=== PATIENT | female | born 1935 | race Caucasian/White ===

== ENCOUNTER 2017-04-01 15:05 | Inpatient (IN) | payer MEDICARE ==
[2017-04-01] MEDS ORDERED: Prevnar 13-Val Conj/PF 0.5 ML SYRINGE IM ONE (17:15)
[2017-04-01] MEDS ORDERED: FLU VACC TS2017-18 (>65YR) 0.5 ML SYRINGE IM ONE (17:15)
[2017-04-01] MEDS ORDERED: Guaifenesin DM 100-10/5 ML UDCUP ONE (18:03)
[2017-04-01] MEDS ORDERED: Ondansetron ODT 4 MG TAB PO PRN (18:09)
[2017-04-01] MEDS ORDERED: Guaifenesin DM 100-10/5 ML UDCUP PO SCH (18:15)
[2017-04-01] MEDS ORDERED: methylPREDNISolone 4 mg Tablet PO SCH (18:30)
[2017-04-01] MEDS: Acetaminophen 325 MG TAB PO PRN (18:36)
[2017-04-01] MEDS ORDERED: Oseltamivir 6 MG/ML ORAL SUSP ONE (20:43)
[2017-04-01] MEDS: Gabapentin 300 MG CAP PO SCH (20:56)
[2017-04-01] MEDS: Pravastatin Sodium 20 MG TAB PO SCH (20:56)
[2017-04-01] MEDS: Donepezil HCl 10 MG TAB PO SCH (20:57)
[2017-04-01] MEDS: Amitriptyline HCl 25 MG TAB PO SCH (20:57)
[2017-04-01] MEDS ORDERED: Amitriptyline HCl 25 MG TAB PO SCH (21:00)
[2017-04-01] MEDS ORDERED: Oseltamivir 6 MG/ML ORAL SUSP PO SCH (21:00)
--- NOTE | 2017-04-01 23:22 | HP ---
DATE OF ADMISSION: 04/01/2017 ADMITTING PHYSICIAN: Dr. Rich aM. PRIMARY CARE PHYSICIAN: Out of town. REASON FOR ADMISSION: For skilled rehabilitation at [facility] bed status post influenza A, right lower lobe pneumonia, and non-ST elevation UT. HISTORY OF PRESENT ILLNESS: Ms. Gooden is an 81-year-old female with a past medical histo ry of dementia, hypertension, hyperlipidemia, depression who was brought to the emergency room by [facility] members due to generalized weakness, altered mental status, and dizziness. In the emergency room , patient was noted to be positive for influenza A noted to dehydrated and she had elevated troponins . Patient was admitted to [facility], where she was treated with IV Rocephin and Levaquin. She was started on Tamiflu twice a day for influenza A and she was evaluated by cardiolog ist. During hospitalization, patient's mental status progressively improved, but she was noted to be very weak. Son states normally she leaves by herself is in bed and sedated so for most of the day, but does not ambulate much, but at this time she is very very weak and can barely stand up on own. P atient was treated with IV fluids and acute kidney injury progressively improved. The decision was m jessenia to transfer patient to [facility] to continue physical therapy prior to dis charge to home. Upon evaluation of patient today, her son and [id number] were in the room with her. The patient denied any pain, but complains of cough and complains of generalized weakness. She denies any fever , nausea, vomiting, abdominal pain, or chest pain. Patient complains of some headache. PAST MEDICAL HISTORY: Hypertension, hyperlipidemia, depression, fibromyalgia. PAST SURGICAL HISTORY: Ovarian cancer status post surgery in 2002, cholecystectomy, left-wrist fract ure repair. FAMILY HISTORY: CVA and UT in mother, bone cancer in father. ALLERGIES: CODEINE. SOCIAL HISTORY: No alcohol or tobacco use. Patient currently lives in [place] by herself on the [facility] property as her son and [id number]. HOME MEDICATION: Gabapentin 300 at bedtime, amitriptyline 25 mg 2 tablets at bedtime, pravastatin 40 mg at bedtime, lisinopril 2.5 mg daily, donepezil 10 mg at bedtime, sertraline 100 two tabs daily, b upropion 150 one tab q.a.m., Tamiflu 30 mg q.p.m., last dose to be given today, Medrol Pablo 4 mg once a day, DuoNeb q.6 p.r.n., Plavix 75 daily, aspirin 81 mg daily, Levaquin 500 mg daily. REVIEW OF SYSTEMS: General: Patient denies any fever, complains of weakness. HEENT: No vision maria r nges. No hearing, no dysphagia. Chest: No chest pain. Complaints of cough, respiration. Complain ts of shortness of breath and wheezing. Abdomen: Denies abdominal pain, constipation, or nausea. G enitourinary: Denies dysuria or hematuria. Skin: Denies easy bruising. Musculoskeletal: Complain ts of generalized weakness and bone soreness. Neurologic: Denies any memory loss, hallucination or delusions. Family states she has dementia. PHYSICAL EXAMINATION: VITAL SIGNS: Temperature 98.1, pulse 82, respirations 16, O2 sat 100% on 2 liters, blood pressure 13 2/61. GENERAL APPEARANCE: Alert, awake, oriented x3, lying comfortably in bed in no apparent distress. HEENT: Atraumatic, normocephalic. EOM intact. PERRLA. Oral mucous membranes moist. No pharyngeal exudates. NECK: Supple, no thyromegaly. CARDIOVASCULAR: S1, S2. No murmurs, no JVD. LUNGS: Clear to auscultation bilaterally. No wheezing, no crackles. ABDOMEN: Positive bowel sounds. Soft, nontender, no guarding, no rigidity. EXTREMITIES: No edema or cyanosis. SKIN: No rashes or bruising. NEUROLOGICAL: Alert, awake, oriented x3. Cranial nerves II-XII grossly intact. No focal motor or s ensory deficits. ASSESSMENT: 1. Physical deconditioning. 2. Influenza type A. 3. Right-sided pneumonia. 4. Gait instability. 5. Acute kidney injury. 6. Hypertension. 7. Depression. 8. Fibromyalgia. PLAN: The patient is being admitted to [facility] swing bed for rehabilitation and g ait strengthening. We will consult physical therapy for strengthening in order to gain modified inde pendence with gait and occupational therapy to help with activities of daily living prior to returnin lalo to her home. We will resume all patient's home medications. We will continue Levaquin, Medrol, an d Tamiflu protocol. We will place patient on DuoNeb scheduled and cough medicines p.r.n. We will mo nitor patient closely for any medical comorbidities that may interfere with recovery. We will place patient on Lovenox for DVT prophylaxis and Protonix for GI prophylaxis. EXTENDED LENGTH OF STAY: 3-4 weeks. DISPOSITION: Home. CODE STATUS: FULL CODE.
[2017-04-02] MEDS: Aspirin 81 mg Enteric Coated Tablet PO SCH (08:46)
[2017-04-02] MEDS: Clopidogrel Bisulfate 75 MG TAB PO SCH (08:46)
[2017-04-02] MEDS: Bupropion 150 MG SR TAB PO SCH (08:46)
[2017-04-02] MEDS: Enoxaparin Sodium 30 MG/0.3 ML SYRINGE SC SCH (08:46)
[2017-04-02] MEDS: Potassium Chloride 20 MEQ TAB PO SCH (08:47)
[2017-04-02] MEDS: methylPREDNISolone 4 mg Tablet PO SCH ×3 (11:25→22:27)
[2017-04-02] MEDS: Guaifenesin DM 100-10/5 ML UDCUP PO PRN ×2 (13:13→22:39)
[2017-04-02] MEDS: Acetaminophen 325 MG TAB PO PRN (15:18)
[2017-04-02] MEDS: Pravastatin Sodium 20 MG TAB PO SCH (22:26)
[2017-04-02] MEDS: Donepezil HCl 10 MG TAB PO SCH (22:26)
[2017-04-02] MEDS: Amitriptyline HCl 25 MG TAB PO SCH (22:27)
[2017-04-02] MEDS: Gabapentin 300 MG CAP PO SCH (22:27)
[2017-04-03] MEDS: methylPREDNISolone 4 mg Tablet PO SCH ×3 (09:39→17:49)
[2017-04-03] MEDS: Clopidogrel Bisulfate 75 MG TAB PO SCH (09:40)
[2017-04-03] MEDS: Bupropion 150 MG SR TAB PO SCH (09:40)
[2017-04-03] MEDS: Enoxaparin Sodium 30 MG/0.3 ML SYRINGE SC SCH (09:40)
[2017-04-03] MEDS: Aspirin 81 mg Enteric Coated Tablet PO SCH (09:40)
[2017-04-03] MEDS: Potassium Chloride 20 MEQ TAB PO SCH (09:41)
[2017-04-03] MEDS: Guaifenesin DM 100-10/5 ML UDCUP PO PRN (11:48)
[2017-04-03] MEDS: Amitriptyline HCl 25 MG TAB PO SCH (20:16)
[2017-04-03] MEDS: Pravastatin Sodium 20 MG TAB PO SCH (20:16)
[2017-04-03] MEDS: Donepezil HCl 10 MG TAB PO SCH (20:16)
[2017-04-03] MEDS: Gabapentin 300 MG CAP PO SCH (20:17)
[2017-04-03] MEDS ORDERED: methylPREDNISolone 4 mg Tablet PO SCH (21:00)
[2017-04-04] MEDS: Bupropion 150 MG SR TAB PO SCH (08:21)
[2017-04-04] MEDS: Aspirin 81 mg Enteric Coated Tablet PO SCH (08:21)
[2017-04-04] MEDS: methylPREDNISolone 4 mg Tablet PO SCH ×4 (08:21→21:12)
[2017-04-04] MEDS: Clopidogrel Bisulfate 75 MG TAB PO SCH (08:22)
[2017-04-04] MEDS: Enoxaparin Sodium 30 MG/0.3 ML SYRINGE SC SCH (08:22)
[2017-04-04] MEDS: Potassium Chloride 20 MEQ TAB PO SCH (08:23)
[2017-04-04] MEDS: Guaifenesin DM 100-10/5 ML UDCUP PO PRN (17:10)
[2017-04-04] MEDS: Pravastatin Sodium 20 MG TAB PO SCH (21:10)
[2017-04-04] MEDS: Donepezil HCl 10 MG TAB PO SCH (21:12)
[2017-04-04] MEDS: Gabapentin 300 MG CAP PO SCH (21:13)
[2017-04-04] MEDS: Amitriptyline HCl 25 MG TAB PO SCH (21:13)
[2017-04-05] MEDS: methylPREDNISolone 4 mg Tablet PO SCH ×3 (08:39→17:03)
[2017-04-05] MEDS: Clopidogrel Bisulfate 75 MG TAB PO SCH (08:39)
[2017-04-05] MEDS: Aspirin 81 mg Enteric Coated Tablet PO SCH (08:39)
[2017-04-05] MEDS: Potassium Chloride 20 MEQ TAB PO SCH (08:39)
[2017-04-05] MEDS: Bupropion 150 MG SR TAB PO SCH (08:39)
[2017-04-05 14:36] VITALS: BMI 25.1
[2017-04-05] MEDS: Donepezil HCl 10 MG TAB PO SCH (20:35)
[2017-04-05] MEDS: Amitriptyline HCl 25 MG TAB PO SCH (20:35)
[2017-04-05] MEDS: Pravastatin Sodium 20 MG TAB PO SCH (20:35)
[2017-04-05] MEDS: Gabapentin 300 MG CAP PO SCH (20:36)
[2017-04-06] MEDS: Clopidogrel Bisulfate 75 MG TAB PO SCH (08:36)
[2017-04-06] MEDS: Bupropion 150 MG SR TAB PO SCH (08:36)
[2017-04-06] MEDS: Potassium Chloride 20 MEQ TAB PO SCH (08:36)
[2017-04-06] MEDS: methylPREDNISolone 4 mg Tablet PO SCH ×2 (08:36→17:00)
[2017-04-06] MEDS: Aspirin 81 mg Enteric Coated Tablet PO SCH (08:36)
[2017-04-06] MEDS: Donepezil HCl 10 MG TAB PO SCH (20:56)
[2017-04-06] MEDS: Amitriptyline HCl 25 MG TAB PO SCH (20:56)
[2017-04-06] MEDS: Gabapentin 300 MG CAP PO SCH (20:57)
[2017-04-06] MEDS: Pravastatin Sodium 20 MG TAB PO SCH (20:57)
[2017-04-07] MEDS ORDERED: methylPREDNISolone 4 mg Tablet PO SCH (08:00)
[2017-04-07] MEDS: Aspirin 81 mg Enteric Coated Tablet PO SCH (08:12)
[2017-04-07] MEDS: Bupropion 150 MG SR TAB PO SCH (08:12)
[2017-04-07] MEDS: Potassium Chloride 20 MEQ TAB PO SCH (08:12)
[2017-04-07] MEDS: Clopidogrel Bisulfate 75 MG TAB PO SCH (08:12)
[2017-04-07] MEDS: Gabapentin 300 MG CAP PO SCH (20:05)
[2017-04-07] MEDS: Donepezil HCl 10 MG TAB PO SCH (20:05)
[2017-04-07] MEDS: Pravastatin Sodium 20 MG TAB PO SCH (20:05)
[2017-04-07] MEDS: Amitriptyline HCl 25 MG TAB PO SCH (20:06)
[2017-04-08 08:28] VITALS: BP 133/62; TEMP 97.7
[2017-04-08] MEDS: Bupropion 150 MG SR TAB PO SCH (08:41)
[2017-04-08] MEDS: Clopidogrel Bisulfate 75 MG TAB PO SCH (08:42)
[2017-04-08] MEDS: Aspirin 81 mg Enteric Coated Tablet PO SCH (08:42)
[2017-04-08] MEDS: Potassium Chloride 20 MEQ TAB PO SCH (08:42)
--- NOTE | 2017-04-09 07:59 | DIS ---
DATE OF ADMISSION: 04/01/2017 DATE OF DISCHARGE: 04/08/2017 ADMITTING PHYSICIAN: Rich Ma MD DISCHARGING PHYSICIAN: Rich Ma MD DISCHARGE DIAGNOSES: 1. Physical debility, improving. 2. Influenza type A, resolved. 3. Right-sided pneumonia, resolved. 4. Acute kidney injury, resolved. 5. Hypertension. 6. Depression. 7. Fibromyalgia. DISCHARGE MEDICATIONS: Gabapentin 300 at bedtime, amitriptyline 25 two tablets at bedtime, pravastatin 40 daily, lisinopril 2.5 daily, donepezil 10 at bedtime , sertraline 200 daily, bupropion 150 q.a.m., Plavix 75 daily, aspirin 81 daily. FOLLOWUP INSTRUCTIONS: The patient is to follow up with her PCP within 1 week. The patient is to use rolling walker for all ambulation. [facility] is to start physical therapy, occupational therapy, and nursing care. CODE STATUS: FULL CODE. BRIEF HOSPITAL COURSE: Ms. Gooden is an 81-year-old female with a past medical history of dementia, hypertension, hyperlipidemia, fibromyalgia, and depression. The patient was admitted to [facility] due to influenza type A. She was also noted to have a superimposed right lower lobe pneumonia and the influenza caused demand ischemia to her heart and the patient also sustained a non-ST elevation MA. The patient due to this became very deconditioned. She was treated in [facility] with IV Rocephin and Levaquin and Tamiflu was started. The patient does live by herself and due to deconditioning, the decision was made to transfer to a skilled rehabilitation prior to discharge to her home. The patient was able to participate in physical therapy and tolerated physical therapy well. She completed Tamiflu and completed Levaquin. The patient continued and slowly progress with physical therapy. On day of discharge, she was able to walk 350 feet with a rolling walker. The patient was subsequently discharged home with her son and [id number] in a stable condition. The decision was made to start [facility] for physical therapy, occupational therapy, and nursing care to help strengthen her some more. The patient was discharged home in a stable condition. Vital signs on day of discharge: Temperature 97.7, pulse 84, oxygen saturation 96% on room air, respiratory rate 18, and blood pressure 133/62. MTDD
== END 2017-04-08 15:52 | disposition home health service (06) | DRG 193 ==
LOC: MADMS 15:05
PROVIDERS: ADMIT Family Medicine; ATTEND Family Medicine
DX: J10.00 Influenza due to other identified influenza virus with unspecified type of pneumonia (principal); I21.A1 Myocardial infarction type 2; N17.9 Acute kidney failure, unspecified; I10 Essential (primary) hypertension; F32.9 Major depressive disorder, single episode, unspecified; M79.7 Fibromyalgia; F03.90 Unspecified dementia, unspecified severity, without behavioral disturbance, psychotic disturbance, mood disturbance, and anxiety; E78.5 Hyperlipidemia, unspecified; R26.9 Unspecified abnormalities of gait and mobility
CPT/HCPCS: G8978-GP-CK; G8979-GP-CI; J1650

== ENCOUNTER 2017-05-18 12:56 | Outpatient (CLI) | payer MEDICARE ==
[2017-05-18 13:31] LABS: Bilirubin Negative (Negative); Blood, Urine Negative (Negative); Clarity Clear (Clear); Glucose, Urine (Dipstick) Negative (Negative); Leukocyte Negative (Negative); Nitrite Negative (Negative); Protein, Urine (Dipstick) Negative (Neg-Trace); Specific Gravity, Urine 1.015 (1.005-1.030); Urobilinogen 0.2 mg/dL (0.2-1.0); pH, Urine 5.5 (5.0-9.0)
[2017-05-18 13:44] LABS: Bacteria/HPF Rare-Few HPF (None Seen); RBC/HPF 0-3 HPF (0-3); Squamous Epithelial 0-3 HPF (0-3); WBC/HPF 0-3 HPF (0-3)
== END 2017-05-18 12:57 | disposition home or self-care (01) ==
LOC: MADLABBHPM 12:56
PROVIDERS: ATTEND Family Medicine
DX: N39.0 Urinary tract infection, site not specified (principal)
CPT/HCPCS: 36415; 81001; 87086

== ENCOUNTER 2018-06-19 10:36 | Emergency (ER) | payer MEDICARE ==
--- NOTE | 2018-06-19 11:41 | CT ---
CT BRAIN WITHOUT CONTRAST: HISTORY: Headache, dizziness with syncope. FINDINGS: Comparison is made with the exam of 08/30/2008. No evidence of infarct, hemorrhage, midline shift, or abnormal extraaxial fluid collections seen. Th e ventricular size is appropriate and the basilar cisterns are patent. The bony calvarium is intact. The visualized paranasal sinuses and mastoid air cells are well aerated. IMPRESSION: No CT evidence of acute cardiopulmonary process. POS: TPC
[2018-06-19 11:52] LABS: Hemoglobin 11.8 g/dL (12.0-16.0); Mean Corpuscular HGB CONC 31.7 g/dL (32.0-36.0); Mean Corpuscular Hemoglobin 28.9 pg (27.0-31.0); Platelet Count 260 thou/uL (130-400); RBC Distribution Width 13.9 % (11.5-14.5); Red Blood Cell (RBC) Count 4.07 mill/uL (4.20-5.40); White Blood Cell (WBC) Count 13.8 thou/uL (4.8-10.8)
[2018-06-19 12:02] LABS: Anisocytosis SLIGHT = 6-15 cells (100X) (0-5/hpf); Band 1 % (5-11); Lymphocytes 30 % (21-51); MDiff Complete? YES; Monocytes 2 % (0-10); Neutrophil 67 % (42-75); Platelet Morphology Comment Appears Adequate
[2018-06-19] MEDS ORDERED: Aspirin Chewable 81 MG TAB ONE (12:12)
[2018-06-19 12:38] LABS: ALT (SGPT) 26 U/L (8-55); AST (SGOT) 21 U/L (5-34); Alkaline Phosphatase 89 U/L (40-150); Anion Gap 17 mmol/L (10-20); BUN (Urea Nitrogen) 35 mg/dL (9.8-20.1); Bilirubin, Total 0.3 mg/dL (0.2-1.2); Calc. Creatinine Clearance 0 mL/min (70-130); Calcium 8.9 mg/dL (7.8-10.44); Carbon Dioxide 25 mmol/L (23-31); Chloride 102 mmol/L (98-107); Estimated GFR-MDRD 38; Globulin 2.9 g/dL (2.4-3.5); Glucose 94 mg/dL (83-110); Potassium 4.1 mmol/L (3.5-5.1); Protein, Total 6.9 g/dL (6.0-8.3); Sodium 140 mmol/L (136-145)
== END 2018-06-19 12:35 | disposition short-term general hospital (02) ==
LOC: MADERS 10:36
DX: R55 Syncope and collapse (principal); I24.9 Acute ischemic heart disease, unspecified; E78.5 Hyperlipidemia, unspecified; I10 Essential (primary) hypertension; F03.90 Unspecified dementia, unspecified severity, without behavioral disturbance, psychotic disturbance, mood disturbance, and anxiety; Z79.899 Other long term (current) drug therapy; Z79.82 Long term (current) use of aspirin
CPT/HCPCS: 70450; 80053; 83735; 83880; 84443; 84484; 85025; 93005

== ENCOUNTER 2020-03-26 10:08 | Emergency (ER) | payer MEDICAID, MEDICARE ==
[2020-03-26] MEDS ORDERED: cefTRIAXone\\ROCEPHIN 1 GM VIAL ONE (11:00)
[2020-03-26] MEDS ORDERED: Dexamethasone 10 MG/ML VIAL ONE (11:00)
[2020-03-26] MEDS ORDERED: Sodium Chloride 0.9% 100 ML ONE ×2 (11:01→12:17)
--- NOTE | 2020-03-26 11:11 | RAD ---
EXAM: XR Chest 1 View Portable PROVIDED CLINICAL HISTORY: Dyspnea, Covid positive COMPARISON: 03/22/2020 FINDINGS: Cardiac and mediastinal silhouette is unchanged in appearance. Interval worsening of bilateral inters titial and airspace disease. There is obscuration of the left hemidiaphragm that may reflect left basilar pleural and/or parenchymal opacity. There is no evidence for pneumothorax. IMPRESSION: Worsened bilateral airspace disease compatible with Covid pneumonia.
[2020-03-26 11:55] LABS: Hemoglobin 13.4 g/dL (12.0-16.0); Mean Corpuscular Hemoglobin 29.7 pg (27.0-31.0); Mean Corpuscular Volume 93.1 fL (78.0-98.0); RBC Distribution Width 12.7 % (11.5-14.5); White Blood Cell (WBC) Count 20.4 thou/uL (4.8-10.8)
[2020-03-26 11:56] LABS: MDiff Complete? YES; Manual Diff?? YES; Mean Platelet Volume 6.8 fL (7.4-10.4); Platelet Count 413 thou/uL (130-400)
[2020-03-26 11:57] LABS: Anisocytosis SLIGHT = 6-15 cells (100X) (0-5/hpf); Band 3 % (5-11); Lymphocytes 11 % (21-51); Monocytes 1 % (0-10); Neutrophil 85 % (42-75); Platelet Morphology Comment Appears Adequate
[2020-03-26 12:00] LABS: ALT (SGPT) 30 U/L (8-55); AST (SGOT) 24 U/L (5-34); Albumin 3.2 g/dL (3.4-4.8); Alkaline Phosphatase 78 U/L (40-110); Anion Gap 18 mmol/L (10-20); BUN (Urea Nitrogen) 36 mg/dL (9.8-20.1); Bilirubin, Total 0.5 mg/dL (0.2-1.2); Calc. Creatinine Clearance 0 mL/min (70-130); Calcium 8.9 mg/dL (7.8-10.44); Carbon Dioxide 19 mmol/L (23-31); Chloride 108 mmol/L (98-107); Globulin 3.9 g/dL (2.4-3.5); Glucose 117 mg/dL (83-110); Potassium 5.2 mmol/L (3.5-5.1); Protein, Total 7.1 g/dL (6.0-8.3); Sodium 140 mmol/L (136-145)
[2020-03-26 12:03] LABS: CRP (Inflammatory) 26.44 mg/dL (= or < 0.5)
[2020-03-26] MEDS ORDERED: Sodium Chloride 0.9% 1,000 ML ONE (12:17)
[2020-03-26] MEDS ORDERED: Doxycycline Hyclate 100 MG VIAL ONE (12:17)
[2020-03-26 12:25] LABS: CKMB 1.6 ng/mL (0-6.6)
== END 2020-03-26 12:35 | disposition short-term general hospital (02) ==
LOC: MADERS 10:08
DX: U07.1 COVID-19 (principal); J96.91 Respiratory failure, unspecified with hypoxia; E78.5 Hyperlipidemia, unspecified; E78.00 Pure hypercholesterolemia, unspecified; I10 Essential (primary) hypertension; I25.10 Atherosclerotic heart disease of native coronary artery without angina pectoris; I25.2 Old myocardial infarction; Z86.73 Personal history of transient ischemic attack (TIA), and cerebral infarction without residual deficits; Z79.899 Other long term (current) drug therapy
CPT/HCPCS: 36415; 71045; 80053; 82550; 82553; 83605; 84484; 85025; 86140; 87040; 93005; 94760; J0696; J1100; J3490; J7050